=== PATIENT | male | born 1960 | race Caucasian/White ===

== ENCOUNTER 2016-11-27 07:36 | Day surgery (SDC) | payer OTHER ==
[2016-11-24 10:27] VITALS: BMI 27.1
[~2016-11-27] VITALS: Ht 165.1 cm; Wt 76.7 kg
[2016-11-27] VITALS (13 sets, daily range): BP systolic 103–144; BP diastolic 55–82; PULSE 60–83; RESP 10–22; Ht 165.1 cm; Wt 76.7 kg
[~2016-11-27 07:36] MED LIST: BUPIVACAINE 0.25%/EPI (SDV) 30 ML INJ ONE
[2016-11-27] MEDS ORDERED: CEFAZOLIN 2 GM/50 ML (PMX) 50 ML IVPB ONE (08:00)
[2016-11-27] MEDS ORDERED: SOD CHLORIDE 0.9% 1,000 ML IV ONE (08:00)
--- NOTE | 2016-11-27 09:40 | HPN ---
Date/Time of Note Date/Time of Note DATE: 11/27/16 TIME: 09:40 Interval H&P Admission Note Pt. seen H&P reviewed: No system changes AURE MAY MD Nov 27, 2016 09:40
[2016-11-27] MEDS ORDERED: FENTAnyl 50 MCG/ML VIAL ONE ×2 (09:43→11:41)
[2016-11-27] MEDS ORDERED: PROPOFOL 20 ML ONE ×2 (09:43→10:33)
[2016-11-27] MEDS ORDERED: MIDAZOLAM 1 MG/ML 2 ML INJ ONE (09:43)
[2016-11-27] MEDS ORDERED: ROCURONIUM 50 MG INJ ONE (09:43)
[2016-11-27] MEDS ORDERED: CEFAZOLIN 1 GM INJ ONE (10:00)
[2016-11-27] MEDS ORDERED: ONDANSETRON 4 MG INJ ONE (10:05)
[2016-11-27] MEDS ORDERED: DEXAMETHASONE 4 MG/ML 1 ML INJ ONE (10:06)
[2016-11-27] MEDS ORDERED: PHENYLephrine (100 MCG/ML) 5ML SYG ONE (10:57)
[2016-11-27] MEDS ORDERED: ONDANSETRON 4 MG INJ IV PRN ×2 (11:00→11:30)
[2016-11-27] MEDS ORDERED: HYDROmorphONE (0.2 MG/ML) 10ML SYG IV PRN ×2 (11:00)
[2016-11-27] MEDS ORDERED: MEPERIDINE 25 MG INJ IV PRN (11:00)
[2016-11-27] MEDS ORDERED: GLYCOPYRROLATE 0.4 MG INJ ONE (11:21)
[2016-11-27] MEDS ORDERED: NEOSTIGMINE 3 MG/3 ML SYRINGE ONE (11:21)
[2016-11-27] MEDS ORDERED: POLYMYXIN/BACITRACIN 1L IRRIG IRR ONE (11:24)
[2016-11-27] MEDS ORDERED: BUPIVACAINE 0.25%/EPI (SDV) 30 ML INJ INJ ONE (11:24)
[2016-11-27] MEDS ORDERED: IBUPROFEN 600 MG TAB PO PRN (11:30)
[2016-11-27] MEDS ORDERED: morphine 2 MG INJ IV PRN (11:30)
[2016-11-27] MEDS ORDERED: KETOROLAC 30 MG INJ IV PRN (11:30)
[2016-11-27] MEDS ORDERED: OXYCODONE/ACETAMINOPHEN (5/325) TAB PO PRN ×2 (11:30)
--- NOTE | 2016-11-27 11:36 | OPR ---
Date/Time of Note Date/Time of Note DATE: 11/27/16 TIME: 11:30 Operative Report Procedure Date: Nov 27, 2016 Preoperative Diagnosis Right inguinal hernia without obstruction or gangrene Postoperative Diagnosis Right inguinal hernia without obstruction or gangrene Operation Performed 1. Laparoscopic right inguinal hernia repair with mesh 2. Right ilioinguinal nerve block Surgeon: AURE MAY MD Anesthesia: general Anesthesiologist: KARTHIKEYAN ESPINOZA DO Estimated Blood Loss: minimal Complications: None Pt Condition Post Procedure: stable Disposition: PACU Indications The patient is a 56-year-old male who presented to the office complaining of a painful right groin bulge. He was diagnosed on clinical exam as having a right inguinal hernia. The patient was scheduled for laparoscopic right inguinal hernia repair with mesh; possible open to prevent sequelae of hernia disease which include, but are not limited to: Incarceration and strangulation. All risks and benefits of the procedure including but not limited to: Wound infection, excessive bleeding, postoperative seroma/hematoma formation, nerve injury which may be temporary versus permanent, injury to the reproductive organs including the vas deferens and the testicle which may lead to testicular atrophy, injury to intra-abdominal organs necessitating subsequent operation, hernia recurrence, chronic pain, etc. were all explained to the patient full detail. The patient fully understood and wished to proceed with the procedure. Informed consent was therefore obtained. Operative Findings Indirect right inguinal hernia. Moderate sized. Procedure Description The patient was brought to the operating room and placed supine on the operating table. Bilateral sequential compression devices were placed on both lower extremities and a dose of prophylactic broad-spectrum perioperative intravenous antibiotics was given. After the induction of smooth general endotracheal anesthesia the patient's abdomen, groins and scrotum were prepped and draped in standard surgical fashion. A supraumbilical incision was made using an 11 blade scalpel and a Veress needle was used to access the intra- abdominal cavity atraumatically. Pneumoperitoneum was obtained and the Veress needle was exchanged for a 12 mm trocar through which a. 5 mm 30 laparoscope was placed. Diagnostic laparoscopy showed a moderately sized right inguinal hernia, indirect in nature. There was no left inguinal hernia identified. There was no other intra-abdominal pathology. Two further working ports were placed. They were both 5 mm ports placed 2 cm above the umbilicus in the right and left midclavicular lines. All port sites were anesthetized with 0.25% Marcaine with epinephrine prior to incision. The patient was then placed in reverse Trendelenburg position. Starting from the anterior superior iliac spine on the right side the peritoneum was mobilized off of the underlying transversalis fascia to the level of the right median umbilical ligament. Dissection was continued medially and Anibal's ligament and the pubis were identified. The hernia sac was then reduced back into the intra-abdominal cavity and dissected off of the spermatic cord. There was scarring of the hernia sac to the spermatic cord. The spermatic cord and its structures were identified and preserved throughout the entirety of the procedure. Once the hernia sac was completely reduced back into the abdominal cavity and dissected off of the spermatic cord a 10 x 15 cm piece of [employer] Symbotex mesh was used to repair the hernia defect. It covered all possible openings of the myopectineal orifice. The mesh was soaked in antibiotic containing irrigation prior to inserting it into the field. The mesh was secured in place using a secure strap tacker. With the repair complete hemostasis was inspected for and noted to be total. Pneumoperitoneum was then decreased to 10 mmHg and the peritoneum was reapproximated over the mesh using a secure strap tacker. The fascia of the umbilical port site was then reapproximated using an Endo Close device and a 0 Vicryl suture. Pneumoperitoneum was released and all remaining trocars were withdrawn under direct vision. Subcutaneous tissues were irrigated with more irrigation. Further local anesthesia was applied around the skin of the incision sites. At this point attention was turned to the right ilioinguinal nerve block. 10 mL of 0.25% Marcaine with epinephrine were injected in a radial fashion proximally 2 cm medial and inferior to the right anterior superior iliac spine. Once this was completed the skin of the incision sites was reapproximated using 4-0 Monocryl sutures in subcuticular fashion. Incisions were cleaned and Dermabond was applied. The patient was awoken from anesthesia and transported to the recovery room in stable condition. Both testicles were palpated at the end of the case and noted to be in their anatomical position. All counts were correct at the end of the case 2. AURE MAY MD Nov 27, 2016 11:36
== END 2016-11-27 13:49 | disposition home or self-care (01) ==
LOC: SDS 07:36
PROVIDERS: ATTEND Surgery
DX: K40.90 Unilateral inguinal hernia, without obstruction or gangrene, not specified as recurrent (principal)
CPT/HCPCS: 49650; J0690; J1100; J1170; J1885; J2250; J2405; J2710; J3010; J2370